=== PATIENT | male | born 1940 | race Caucasian/White ===

== ENCOUNTER 2018-10-24 12:19 | Inpatient (IN) ==
[2018-10-24] MEDS ORDERED: DIPHTHERIA/TETANUS/PERTUSSIS 0.5 ML SYR/VIAL IM ONE ×2 (13:13→15:43)
--- NOTE | 2018-10-24 13:16 | Emergency Department Note ---
Entered by Mayela Walton acting as a scribe for Tramaine Hendricks DO History of Present Illness General Chief complaint: Head Injury, Minor Stated complaint: fall/ facial & R hand lac Time Seen by Provider: 10/24/18 13:06 Source: patient and family History of Present Illness Provider complaint: fall Onset (ago): hour(s) less than 1 Location: head Pain Consistency: + other (episode) Quality: + other (fall) Associated symptoms: + denies other symptoms (head pain, neck pain, abdominal pain, shoulder pain, leg pain) Treatments prior to arrival: other (Plavix) The patient is an 78 year old male who presents to the ED with complaints of an episode of a fall that occurred less than 1 hour ago. The patients states that [place]. The patient denies head pain, neck pain, abdominal pain, shoulder pain, and leg pain. Per , the patient is on Plavix and he did take his medication today. Home Medications Home Medications Medication Instructions Recorded Confirmed Type aspirin 81 mg PO QAM 10/24/18 10/24/18 History benazepril 5 mg PO QAM 10/24/18 10/24/18 History clopidogrel [Plavix] 75 mg PO QAM 10/24/18 10/24/18 History levothyroxine 50 mcg PO QAM 10/24/18 10/24/18 History metoprolol tartrate 25 mg PO BID 10/24/18 10/24/18 History potassium chloride 10 meq PO QAM 10/24/18 10/24/18 History simvastatin 40 mg PO QAM 10/24/18 10/24/18 History vismodegib [Erivedge] 150 mg PO QAM 10/24/18 10/24/18 History Allergies Allergy/AdvReac Type Severity Reaction Status Date / Time No Known Allergies Allergy Unverified 10/24/18 13:19 Past Med/Surg History Family History Other Family history non-contributory Social History Preferred Language: Bulgarian Communication Ability: Impaired Communication Ability Comment: some expressive aphasia from previous stroke Clinical Operations Manager Required: No Beliefs That Will Affect Care: None Current Living Situation: Spouse Other Information That Helps Us Care for You: No Feels Safe at Home: Yes Safety Concerns: Feels Safe At This Time Smoking Status: Never smoker Hx Alcohol Use: No Hx Substance Use: No Review of Systems See HPI for pertinent positives & negatives. and A total of 10 systems reviewed and were otherwise negative Physical Exam Vital Signs Vital Signs - 24 hr 10/24/18 14:43 10/24/18 15:09 10/24/18 16:00 Pulse Rate 71 86 Pulse Rate [Left Finger] 64 Pulse Rate from SpO2 Sensor 85 Pulse Rhythm Regular Respiratory Rate 18 18 23 Respiratory Effort / Characteristics Non-Labored Respiratory Depth Normal Respiratory Pattern Regular Blood Pressure 152/65 H Blood Pressure [Left Arm] 138/60 Blood Pressure Mean 94 Blood Pressure Mean [Left Arm] 86 Pulse Oximetry 99 99 99 Oxygen Delivery Method Room Air Room Air Room Air 10/24/18 16:30 10/24/18 18:30 10/24/18 19:01 Pulse Rate 85 109 H 104 H Pulse Rate [Left Finger] Pulse Rate from SpO2 Sensor 85 105 H 104 H Pulse Rhythm Respiratory Rate 20 28 H 22 Respiratory Effort / Characteristics Respiratory Depth Respiratory Pattern Blood Pressure 122/62 160/67 H 125/64 Blood Pressure [Left Arm] Blood Pressure Mean 82 98 84 Blood Pressure Mean [Left Arm] Pulse Oximetry 97 96 99 Oxygen Delivery Method Room Air Room Air 10/24/18 19:30 10/24/18 20:00 10/24/18 20:30 Pulse Rate 101 H 108 H 110 H Pulse Rate [Left Finger] Pulse Rate from SpO2 Sensor 102 H 109 H 112 H Pulse Rhythm Respiratory Rate 23 23 25 H Respiratory Effort / Characteristics Respiratory Depth Respiratory Pattern Blood Pressure 138/61 155/70 H 120/63 Blood Pressure [Left Arm] Blood Pressure Mean 86 98 82 Blood Pressure Mean [Left Arm] Pulse Oximetry 99 99 98 Oxygen Delivery Method 10/24/18 21:00 Pulse Rate 128 H Pulse Rate [Left Finger] Pulse Rate from SpO2 Sensor 128 H Pulse Rhythm Respiratory Rate 24 Respiratory Effort / Characteristics Respiratory Depth Respiratory Pattern Blood Pressure 154/86 H Blood Pressure [Left Arm] Blood Pressure Mean 108 Blood Pressure Mean [Left Arm] Pulse Oximetry 100 Oxygen Delivery Method GENERAL: Patient is awake and alert. He is very anxious appearing. EYES: Pupils are equal round and reactive to light. There is significant periorbital ecchymosis around the right eye. There is no proptosis. EARS, NOSE, MOUTH AND THROAT: There is significant facial trauma especially around the right side of the face. There is a large stellate laceration over the bridge of the nose. There is no active bleeding noted. There are also multiple linear lacerations over the mid part of the forehead. Clotted blood is noted in both nares but no septal hematoma was noted. Dentition is intact. There is blood in the oropharynx. NECK: The neck is nontender and supple. Range of motion was normal. RESPIRATORY: Normal respiratory effort is noted there is no evidence of wheezing rhonchi or rales CARDIOVASCULAR: Regular rate and rhythm noted there no murmurs rubs or gallops normal S1 normal S2 GASTROINTESTINAL: The abdomen is soft. Bowel sounds are present in all quadrants. Abdomen is nontender BACK: No midline tenderness or or step-off noted range of motion in flexion extension as well as rotation no signs of muscle spasm noted MUSCULOSKELETAL/EXTREMITIES: There is significant ecchymosis and swelling over the right upper extremity as well as the right forearm. This area is difficult to evaluate due to the patient's previous stroke. There is no palpable tenderness over the hips. SKIN: There is no obvious evidence of any rash. Pedal edema was noted bilaterally. There is ecchymosis and skin tearing over the dorsum of the left hand. There is also skin tearing on the right upper extremity as well as ec chymosis and swelling over the right upper extremity. NEUROLOGIC: Patient is awake and oriented to person place and situation. There is right-sided weakness consistent with the patient's previous stroke. Course 1307: Past medical records reviewed. The patient was evaluated in room B7. A complete history and physical exam was performed. 1811: Dr. Morales- Oral and Maxillofacial Surgeon did facial laceration repairs on the patient. Patient will need to have ongoing care for dressing changes either here or at [facility]. 1831: I discussed the patient's case with [facility] She will be accepting the patient for [facility] He will evaluate the patient for further management. Consultations Consultation #1: I discussed the patient's case with Nayeli Lujan [facility]. She will be accepting the patient for [facility] He will evaluate the patient for further management. Time: 18:31 Administered Medications Aspirin (Ecotrin Ectab) 81 mg PO QAM [facility] Stop: 11/24/18 08:59 Last Admin: 10/25/18 07:57 Dose: 81 mg Documented by: [id number] Clopidogrel Bisulfate (Plavix) 75 mg PO [facility] Stop: 11/24/18 08:59 Last Admin: 10/25/18 07:59 Dose: 75 mg Documented by: [id number] Enalapril Maleate (Vasotec) 5 mg PO [facility] Stop: 11/24/18 08:59 Last Admin: 10/25/18 08:00 Dose: 5 mg Documented by: [id number] Ceftriaxone Sodium 2,000 mg/ (Dextrose) 70 mls @ 140 mls/hr IV Q24H [facility] Stop: 12/06/18 00:00 Last Infusion: 10/25/18 01:47 Dose: 0 mls/hr Documented by: [id number] Admin: 10/25/18 01:08 Dose: 140 mls/hr Documented by: [id number] Levothyroxine [facility] ([facility]th[facility]) [facility] Stop: 11/24/18 06:29 Last Admin: 10/25/18 05:27 Dose: 50 mcg Documented by: [id number] Metoprolol Tartrate (Lopressor) 25 mg PO BID [facility] Stop: 11/24/18 08:59 Last Admin: 10/25/18 07:59 Dose: 25 mg Documented by: [id number] Miscellaneous (Order Awaiting Action) 1 ea N/A QS [facility] Stop: 11/24/18 00:29 Last Admin: 10/25/18 09:54 Dose: Not Given Documented by: [id number] Admin: 10/25/18 01:36 Dose: Not Given Documented by: [id number] Potassium Chloride (Klor-Con M10) 10 meq PO [facility] Stop: 11/24/18 08:59 Last Admin: 10/25/18 07:58 Dose: 10 meq Documented by: [id number] Simvastatin (Zocor) 40 mg PO [facility] Stop: 11/24/18 08:59 Last Admin: 10/25/18 08:00 Dose: 40 mg Documented by: [id number] Discontinued Medications Diphtheria/Pertussis/Tetanus Vacc (Adacel) 0.5 ml IM .ONCE ONE Stop: 10/24/18 13:14 Last Admin: 10/24/18 15:47 Dose: 0.5 ml Documented by: [id number] Diphtheria/Pertussis/Tetanus Vacc (Adacel) Confirm Administered Dose 0.5 ml IM .STK-MED ONE Stop: 10/24/18 15:44 Last Admin: 10/24/18 18:33 Dose: Not Given Documented by: [id number] Cefazolin Sodium (Ancef 1000mg) 1,000 mg in 7.5 mls @ 2.5 mls/min IV NOW STA Stop: 10/24/18 15:07 Last Admin: 10/24/18 15:47 Dose: 2.5 mls/min Documented by: [id number] Sodium Chloride (Nss 1000ml) 500 mls @ 999 mls/hr IV .Q31M ONE Stop: 10/24/18 15:35 Last Infusion: 10/24/18 16:19 Dose: 0 mls/hr Documented by: [id number] Admin: 10/24/18 15:47 Dose: 999 mls/hr Documented by: [id number] Lidocaine/Epinephrine (Xylocaine/Epinephrine 1%) Confirm Administered Dose 20 ml .ROUTE .STThe Kitchen Hotline-MED ONE Stop: 10/24/18 17:43 Last Admin: 10/24/18 18:33 Dose: 20 ml Documented by: [id number] Medical Decision Making Differential Diagnosis Differential diagnosis: Etiologies such as fracture, cervical/vertebral injury, dislocation, intra- abdominal process, pneumothorax, intrathoracic trauma, intracranial injury, soft tissue injury, neurologic process, as well as other traumatic pathologies were entertained. Medical Records Attestation: I reviewed the patient's medical records. Home Medications Current Medication List: was personally reviewed by me Laboratory Data Attestation: I reviewed the patient's lab results. Result diagrams: 10/25/18 06:05 10/25/18 06:05 Lab Results 10/24/18 10/24/18 10/24/18 Range/Units 12:20 12:20 12:20 WBC 8.03 (4.8-10.8) K/uL RBC 3.55 L (4.7-6.1) M/uL Hgb 11.6 L (14.0-18.0) g/dL Hct 35.0 L (42-52) % MCV 98.6 (80-100) fL MCH 32.7 (25-34) pg MCHC 33.1 (32-36) g/dL RDW Std Deviation 50.8 H (36.4-46.3) fL RDW Coeff of Dago 14.1 (11.5-14.5) % Plt Count 180 (130-400) K/uL MPV 9.5 (7.4-10.4) fL Immature Gran % (Auto) 0.2 % Neut % (Auto) 64.4 % Lymph % (Auto) 24.0 % Weld % (Auto) 7.5 % Eos % (Auto) 3.4 % Baso % (Auto) 0.5 % Immature Gran # (Auto) 0.02 (0.00-0.02) K/uL Neut # (Auto) 5.17 (1.4-6.5) K/uL Lymph # (Auto) 1.93 (1.2-3.4) K/uL Weld # (Auto) 0.60 H (0.11-0.59) K/uL Eos # (Auto) 0.27 (0-0.5) K/uL Baso # (Auto) 0.04 (0-0.2) K/uL PT 11.0 (9.0-12.0) Seconds INR 1.1 (0.9-1.1) APTT 23.4 (21.0-31.0) Seconds PTT Ratio 0.9 Sodium 142 (136-145) mmol/L Potassium 4.5 (3.5-5.1) mmol/L Chloride 110 H (98-107) mmol/L Carbon Dioxide 25 (21-32) mmol/L Anion Gap 7.0 (3-11) BUN 20 H (7-18) mg/dl Creatinine 1.08 (0.6-1.4) mg/dl Est Cr Clr Drug Dosing 60.9 ml/min Est GFR ( Amer) 74.7 Est GFR (Non-Af Amer) 64.5 BUN/Creatinine Ratio 18.1 (10-20) Glucose 110 H (70-99) mg/dl Calcium 9.9 (8.5-10.1) mg/dl Total Bilirubin 0.7 (0.2-1) mg/dl AST 13 L (15-37) U/L ALT 17 (12-78) U/L Alkaline Phosphatase 90 (45-117) U/L Total Protein 7.1 (6.4-8.2) gm/dl Albumin 3.2 L (3.4-5.0) gm/dl Globulin 3.9 (2.5-4.0) gm/dl Albumin/Globulin Ratio 0.8 L (0.9-2) Lipase 138 (73-393) U/L Imaging Data Radiologist's Impression: Radiology results as stated below per my review and the radiologist's interpretation: XR chest 1V portable CLINICAL HISTORY: fall trauma COMPARISON STUDY: No previous studies for comparison. FINDINGS: Prior median sternotomy. Diaphragms are smooth. The lungs are considered clear. IMPRESSION: No acute process. The above report was generated using voice recognition software. It may contain grammatical, syntax or spelling errors. Electronically signed by: Adonay Ann M.D. 10/24/2018 1:39 PM XR forearm RT 2V CLINICAL HISTORY: Trauma, R forearm pain COMPARISON: None. DISCUSSION: The bones and joint spaces appear intact. There is no evidence of fracture, dislocation or bony disease. Generalized degenerative change. Osteopenia process. IMPRESSION: Generalized degenerative changes. Osteoporosis. No acute process. The above report was generated using voice recognition software. It may contain grammatical, syntax or spelling errors. Electronically signed by: Adonay Ann M.D. 10/24/2018 5:21 PM XR pelvis 1-2V routine CLINICAL HISTORY: Elbow pain status post trauma COMPARISON: None. DISCUSSION: Study is rotated. There is a bipolar right hip arthroplasty. No acute fractures or dislocations are visualized. There is mild nonspecific right ischial sclerosis. There is no SI joint diastases. There is no symphysis diastases. IMPRESSION: No acute fractures or dislocations identified. Electronically signed by: Juan Carlos Keller M.D. 10/24/2018 1:39 PM XR humerus RT 2V CLINICAL HISTORY: R arm pain trauma. Pain. COMPARISON: None. DISCUSSION: The bones and joint spaces appear intact. There is no evidence of fracture, dislocation or bony disease. There is no evidence for soft tissue swelling. IMPRESSION: Negative study. The above report was generated using voice recognition software. It may contain grammatical, syntax or spelling errors. Electronically signed by: Adonay Ann M.D. 10/24/2018 5:21 PM XR ankle RT 2V CLINICAL HISTORY: r ankle pain pain COMPARISON: None. DISCUSSION: Generalized degenerative change. Osteoporosis. Heel spur. No well-defined acute bony abnormality. Soft tissue vascular calcification. Subtalar joint is intact. IMPRESSION: 1. Generalized degenerative change. 2. Osteoporosis. 3. Heel spur. 4. No acute bony abnormality. The above report was generated using voice recognition software. It may contain grammatical, syntax or spelling errors. Electronically signed by: Adonay Ann M.D. 10/24/2018 5:[address] head/brain wo con CLINICAL HISTORY: Head pain status post trauma COMPARISON STUDY: No previous studies for comparison. TECHNIQUE: Axial CT of the brain is performed from the vertex to the skull bas e. IV contrast was not administered for this examination. A dose lowering technique was utilized adhering to the principles of ALARA. CT DOSE: FINDINGS: No intra or extra-axial mass lesions are visualized. There is no CT evidence of acute cortical infarction. There is no evidence of midline shift. There is no acute hemorrhage. No calvarial fractures are visualized. There are patchy white matter hypodensities likely on a small vessel basis. There is an old left hemispheric infarct with involvement of the left frontal lobe, left basal ganglia, and anterior portion of the left parietal lobe. There is no evidence of pathologic ventricular dilatation. There is no evidence of acute sinusitis. There is evidence for a frontal soft tissue injury. Overlying radiopaque material likely represent suture. There is soft tissue air within the right temporal region. This is likely secondary to an overlying soft tissue laceration. IMPRESSION: 1. Scalp laceration 2. Old left hemispheric infarct. 3. No acute intracranial findings Electronically signed by: Juan Carlos Keller M.D. 10/24/2018 1:[address] SCAN OF THE FACIAL BONES WITHOUT IV CONTRAST CLINICAL HISTORY: Fall. Facial laceration. COMPARISON STUDY: CT of the brain performed concurrently on 10/24/2018. TECHNIQUE: High-resolution CT scan of the facial bones is performed. Images are reviewed in the axial, sagittal, and coronal planes. IV contrast was not administered for this examination. A dose lowering technique was utilized adhering to the principles of ALARA. CT DOSE: 1049.26 mGy.cm FINDINGS: The skeletal structures are osteopenic. There are fractures of the tips of the nasal bones, with minimal depression on the left. Overlying soft tissue edema is noted. No additional facial bone fracture is seen. The bony orbits are intact and the orbital contents are within normal limits noting bilateral ocular lens implants. The zygomatic arches and pterygoid plates are preserved. The maxilla and mandible are intact. There are no layering blood products within the paranasal sinuses. There is trace mucosal thickening within the right maxillary antrum and the ethmoid sinuses. The remaining paranasal sinuses are clear. The mastoid air cells are well pneumatized. The visualized ca lvarium and upper cervical spine are maintained. Left hemisphere encephalomalacia is consistent with a remote infarct. A left carotid artery stent is noted in the neck. There is right premalar, right periorbital, right temporal, and frontal scalp contusion. IMPRESSION: 1. There are fractures at the tips of the nasal bones with minimal depression on the left. 2. No additional facial bone fracture is seen. 3. Right-sided facial soft tissue contusions as above. Electronically signed by: Ronaldo Ortiz M.D. 10/24/2018 2:[address] OF THE CERVICAL SPINE CLINICAL HISTORY: Neck pain status post trauma COMPARISON STUDY: No previous studies for comparison. CT DOSE: TECHNIQUE: CT scan of the cervical spine was performed from the skull base to the thoracic inlet. Images are reviewed in the axial, sagittal, and coronal planes. IV contrast was not administered for this examination. A dose lowering technique was utilized adhering to the principles of ALARA. FINDINGS: There is a 6 cm right lobe thyroid nodule. Ultrasound follow-up is recommended. There is a 1 cm sclerotic lesion within the C6 vertebral body. In the absence of a primary malignancy this likely represents a bone island. The prevertebral soft tissues are normal. No fractures or subluxations are visualized. There is incomplete posterior C1 arch. This is felt to be developm ental. There are multilevel degenerative changes. There is multilevel spinal canal narrowing and multilevel foraminal narrowing. IMPRESSION: 1. No acute fractures or subluxations 2. 6 cm right lobe thyroid nodule. Ultrasound follow-up is recommended Electronically signed by: Juan Carlos Keller M.D. 10/24/2018 2:03 PM Blood Pressure Blood Pressure Findings: Normal blood pressure Blood Pressure Disposition: did not require urgent referral MDM Narrative The patient is an 78-year-old male who presented to the emergency department for an evaluation after a fall. The patient suffered a fall with very significant facial injury. He also had right upper extremity injury. The patient has a history of a stroke and normally ambulates with a wheelchair. He fell from the wheelchair striking his face. The patient had wound irrigation as well as laboratory and radiographic studies in the emergency department. It appears that his facial laceration involves an area of recent skin biopsy for basal cell cancer. For this reason Dr. Morales was consulted. He presented to the emergency department and evaluated the patient. Multiple lacerations were repaired by him. The patient received IV antibiotics. He felt that the defect over the bridge of the nose was very difficult to fix and at this time he feels the patient should follow-up with his primary scanner supervisor for possible further wound care as well as skin grafting. For this reason I discussed his case with the on-call [facility] hospitalist. They have agreed to evaluate the patient in the emergency department for further management disposition. Impression & Plan Fall, Head injury, Facial laceration, Contusion of arm, right Discharge Plan Visit Data *Final* Discharge Date/Time: 10/24/18 21:46 Chief Complaint: Head Injury, Minor Stated Complaint: fall/ facial & R hand lac ED Provider: Tramaine Hendricks Discharge Problem: Fall, Head injury, Facial laceration, Contusion of arm, right Patient Disposition: Admitted As Inpatient Discharge Instructions Interventions: ED Discharge Assessment Last Done: 10/24/18 21:46 Discharge Problem: Fall Qualifiers: Encounter type: initial encounter Qualified Code(s): W19.XXXA - Unspecified fall, initial encounter Head injury Qualifiers: Encounter type: initial encounter Qualified Code(s): S09.90XA - Unspecified injury of head, initial encounter Facial laceration Qualifiers: Encounter type: initial encounter Qualified Code(s): S01.81XA - Laceration without foreign body of other part of head, initial encounter Contusion of arm, right Qualifiers: Encounter type: initial encounter Qualified Code(s): S40.021A - Contusion of right upper arm, initial encounter The scribe's documentation has been prepared under my direction and personally reviewed by me in its entirety. I confirm that the note above accurately reflects all work, treatment, procedures, and medical decision making performed by me.
--- NOTE | 2018-10-24 13:41 | XRay Report ---
XR pelvis 1-2V routine CLINICAL HISTORY: Elbow pain status post trauma COMPARISON: None. DISCUSSION: Study is rotated. There is a bipolar right hip arthroplasty. No acute fractures or disloc ations are visualized. There is mild nonspecific right ischial sclerosis. There is no SI joint diasta ses. There is no symphysis diastases. IMPRESSION: No acute fractures or dislocations identified. Electronically signed by: Juan Carlos Keller M.D. 10/24/2018 1:39 PM
--- NOTE | 2018-10-24 13:41 | XRay Report ---
XR chest 1V portable CLINICAL HISTORY: fall trauma COMPARISON STUDY: No previous studies for comparison. FINDINGS: Prior median sternotomy. Diaphragms are smooth. The lungs are considered clear. IMPRESSION: No acute process. The above report was generated using voice recognition software. It may contain grammatical, syntax or spelling errors. Electronically signed by: Adonay Ann M.D. 10/24/2018 1:39 PM
--- NOTE | 2018-10-24 13:58 | CT Scan Report ---
CT head/brain wo con CLINICAL HISTORY: Head pain status post trauma COMPARISON STUDY: No previous studies for comparison. TECHNIQUE: Axial CT of the brain is performed from the vertex to the skull base. IV contrast was not administered for this examination. A dose lowering technique was utilized adhering to the principles of ALARA. CT DOSE: FINDINGS: No intra or extra-axial mass lesions are visualized. There is no CT evidence of acute cortical infarc tion. There is no evidence of midline shift. There is no acute hemorrhage. No calvarial fractures ar e visualized. There are patchy white matter hypodensities likely on a small vessel basis. There is an old left jamarcus spheric infarct with involvement of the left frontal lobe, left basal ganglia, and anterior portion o f the left parietal lobe. There is no evidence of pathologic ventricular dilatation. There is no evidence of acute sinusitis. There is evidence for a frontal soft tissue injury. Overlyin g radiopaque material likely represent suture. There is soft tissue air within the right temporal reg ion. This is likely secondary to an overlying soft tissue laceration. IMPRESSION: 1. Scalp laceration 2. Old left hemispheric infarct. 3. No acute intracranial findings Electronically signed by: Juan Carlos Keller M.D. 10/24/2018 1:57 PM
--- NOTE | 2018-10-24 14:05 | CT Scan Report ---
CT OF THE CERVICAL SPINE CLINICAL HISTORY: Neck pain status post trauma COMPARISON STUDY: No previous studies for comparison. CT DOSE: TECHNIQUE: CT scan of the cervical spine was performed from the skull base to the thoracic inlet. Radha ges are reviewed in the axial, sagittal, and coronal planes. IV contrast was not administered for thi s examination. A dose lowering technique was utilized adhering to the principles of ALARA. FINDINGS: There is a 6 cm right lobe thyroid nodule. Ultrasound follow-up is recommended. There is a 1 cm scler otic lesion within the C6 vertebral body. In the absence of a primary malignancy this likely represen ts a bone island. The prevertebral soft tissues are normal. No fractures or subluxations are visualized. There is inco mplete posterior C1 arch. This is felt to be developmental. There are multilevel degenerative changes. There is multilevel spinal canal narrowing and multilevel foraminal narrowing. IMPRESSION: 1. No acute fractures or subluxations 2. 6 cm right lobe thyroid nodule. Ultrasound follow-up is recommended Electronically signed by: Juan Carlos Keller M.D. 10/24/2018 2:03 PM
--- NOTE | 2018-10-24 14:15 | CT Scan Report ---
CT SCAN OF THE FACIAL BONES WITHOUT IV CONTRAST CLINICAL HISTORY: Fall. Facial laceration. COMPARISON STUDY: CT of the brain performed concurrently on 10/24/2018. TECHNIQUE: High-resolution CT scan of the facial bones is performed. Images are reviewed in the axia l, sagittal, and coronal planes. IV contrast was not administered for this examination. A dose lower ing technique was utilized adhering to the principles of ALARA. CT DOSE: 1049.26 mGy.cm FINDINGS: The skeletal structures are osteopenic. There are fractures of the tips of the nasal bones, with minimal depression on the left. Overlying soft tissue edema is noted. No additional facial bone fracture is seen. The bony orbits are intact and the orbital contents are within normal limits notin g bilateral ocular lens implants. The zygomatic arches and pterygoid plates are preserved. The maxill a and mandible are intact. There are no layering blood products within the paranasal sinuses. There i s trace mucosal thickening within the right maxillary antrum and the ethmoid sinuses. The remaining p aranasal sinuses are clear. The mastoid air cells are well pneumatized. The visualized calvarium and upper cervical spine are maintained. Left hemisphere encephalomalacia is consistent with a remote inf arct. A left carotid artery stent is noted in the neck. There is right premalar, right periorbital, r ight temporal, and frontal scalp contusion. IMPRESSION: 1. There are fractures at the tips of the nasal bones with minimal depression on the left. 2. No additional facial bone fracture is seen. 3. Right-sided facial soft tissue contusions as above. Electronically signed by: Ronaldo Ortiz M.D. 10/24/2018 2:13 PM
[2018-10-24] MEDS ORDERED: CEFAZOLIN 1000MG 1,000 MG/7.5 ML SYR IV STA (15:05)
[2018-10-24] MEDS ORDERED: SODIUM CHLORIDE 0.9% 1000ML 500 ML IV ONE (15:05)
[2018-10-24 15:57] LABS: Basophils # (auto) 0.04 K/uL (0-0.2); Basophils % (auto) 0.5 %; Eosinophils # (auto) 0.27 K/uL (0-0.5); Eosinophils % (auto) 3.4 %; Hemoglobin 11.6 g/dL (14.0-18.0); Immature Granulocytes # (auto) 0.02 K/uL (0.00-0.02); Immature Granulocytes % (auto) 0.2 %; Lymphocytes # (auto) 1.93 K/uL (1.2-3.4); Mean Corpuscular Hgb Conc 33.1 g/dL (32-36); Mean Corpuscular Volume 98.6 fL (80-100); Mean Platelet Volume 9.5 fL (7.4-10.4); Monocytes % (auto) 7.5 %; Neutrophils # (auto) 5.17 K/uL (1.4-6.5); Neutrophils % (auto) 64.4 %; Platelet Count 180 K/uL (130-400); RDW Coefficient of Variation 14.1 % (11.5-14.5); RDW Standard Deviation 50.8 fL (36.4-46.3); Red Blood Count 3.55 M/uL (4.7-6.1); White Blood Count 8.03 K/uL (4.8-10.8)
[2018-10-24 16:00] LABS: INR 1.1 (0.9-1.1); Partial Thromboplastin Ratio 0.9; Partial Thromboplastin Time 23.4 Seconds (21.0-31.0)
[2018-10-24 16:06] LABS: Albumin Level 3.2 gm/dl (3.4-5.0); BUN Creatinine Ratio 18.1 (10-20); Calcium 9.9 mg/dl (8.5-10.1); Creatinine Clr Calc Pharmacy 60.9 ml/min; Est GFR (African American) 74.7; Est GFR (Non-African American) 64.5; Potassium 4.5 mmol/L (3.5-5.1)
[2018-10-24 16:08] LABS: Albumin Globulin Ratio 0.8 (0.9-2); Bilirubin,Total 0.7 mg/dl (0.2-1); Globulin 3.9 gm/dl (2.5-4.0); Total Protein 7.1 gm/dl (6.4-8.2)
--- NOTE | 2018-10-24 17:21 | XRay Report ---
XR ankle RT 2V CLINICAL HISTORY: r ankle pain pain COMPARISON: None. DISCUSSION: Generalized degenerative change. Osteoporosis. Heel spur. No well-defined acute bony abnormality. Soft tissue vascular calcification. Subtalar joint is intact. IMPRESSION: 1. Generalized degenerative change. 2. Osteoporosis. 3. Heel spur. 4. No acute bony abnormality. The above report was generated using voice recognition software. It may contain grammatical, syntax or spelling errors. Electronically signed by: Adonay Ann M.D. 10/24/2018 5:19 PM
--- NOTE | 2018-10-24 17:22 | XRay Report ---
XR forearm RT 2V CLINICAL HISTORY: Trauma, R forearm pain COMPARISON: None. DISCUSSION: The bones and joint spaces appear intact. There is no evidence of fracture, dislocation o r bony disease. Generalized degenerative change. Osteopenia process. IMPRESSION: Generalized degenerative changes. Osteoporosis. No acute process. The above report was generated using voice recognition software. It may contain grammatical, syntax or spelling errors. Electronically signed by: Adonay Ann M.D. 10/24/2018 5:21 PM
--- NOTE | 2018-10-24 17:23 | XRay Report ---
XR humerus RT 2V CLINICAL HISTORY: R arm pain trauma. Pain. COMPARISON: None. DISCUSSION: The bones and joint spaces appear intact. There is no evidence of fracture, dislocation o r bony disease. There is no evidence for soft tissue swelling. IMPRESSION: Negative study. The above report was generated using voice recognition software. It may contain grammatical, syntax or spelling errors. Electronically signed by: Adonay Ann M.D. 10/24/2018 5:21 PM
[2018-10-24] MEDS ORDERED: LIDOCAINE/EPINEPHRINE 1% 20 ML VIAL ONE (17:42)
--- NOTE | 2018-10-24 20:34 | Consultation Report ---
DATE OF CONSULTATION: 10/24/2018 CHIEF COMPLAINT: Fall with complex facial lacerations. SUMMARY HISTORY: Please refer to the ER documentation. In brief, Mr. Bentley is an 78-year-old medically compromised man visiting the [facility] area to attend the [employer], but lives in [place]. He fell at the fair suffering a significant laceration of his forehead and cheek and was brought to the ER. 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 There is also significant abrasions in the right cheek with some retained gravel. The patient and family's verbal consent, I cleansed the wound, removed the gravel from the cheek, irrigated the areas copiously and I used lidocaine with epinephrine to locally anesthetize the 3 cm forehead laceration. I debrided the laceration, trimmed irregular and necrotic edges of the skin and closed the laceration with 4-0 chromic gut suture in a single layer. I applied bacitracin to this and then cleansed the facial abrasions and placed bacitracin on the nose. I discussed his care with the ER staff, will place him on oral antibiotic. I feel that saline wet to dry dressings done twice daily will be necessary to manage the wound at the root of his nose, will try to arrange for either visiting home health or perhaps a short rehab stay for their time here in [facility] and transfer records to his care team in [place] to flower buncher or picker his care, which will need to involve close monitoring and wound care of both the lacerations and the tumor. I communicated this with his and son and they can certainly call me for any advice as needed going forward.
--- NOTE | 2018-10-24 21:20 | History & Physical Report ---
Date of Service October 24, 2018 Assessment & Plan (1) Open nasal fracture: 78-year-old male was admitted on 24 October 2018 following a fall and now an open nasal fracture. Open nasal fracture s/p fall: History of basal cell carcinoma with radiation and now medically treated with Erivedge (care at home in [place]). Fell face forward out of wheelchair prior to arrival. Now has exposed facial bones. - In ED, afebrile, briefly tachycardic and tachypneic, moderately hypertensive, with normal room SpO2. WBC 8. INR 1.1. CMP relatively normal. Multiple CT and x-rays performed, see full reports. Remarkable for fracture of the tip of the nasal bones as well as facial contusions. - In ED, was treated with normal saline, Ancef, and given a Tdap booster. [place] and underwent suture repair of his cheek. - Will keep on ceftriaxone. Monitor for fever, local cellulitis, or other evidence of worsening overnight. Placed formal consult [place] [facility] They recommended saline wet-to-dry dressings twice a day to manage the wound at the nose. Anemia: Admit hemoglobin 11.6. Has multiple abrasions s/p fall and has been on aspirin and Plavix. - Will recheck hemoglobin in the morning. Thyroid nodule: 6 cm right lobe thyroid nodule seen on admit CT C-spine. Report jessie had a thyroidectomy around 1993 mass at that time. Is on levothyroxine. - Would benefit from further outpatient work-up. Continue home levothyroxine. Ongoing medical issues: - Likely hypertension and hyperlipidemia: Per family. Continue home metoprolol, benazepril, simvastatin, and potassium. - CAD, history of CABG. Reportedly three-vessel bypass around 1997. Continue home aspirin and Plavix for now. - History of CVA: Around 2006. This admit, CT head notes old left hemispheric infarct. At baseline, no movement of the right upper extremity and some weakness/spasticity of the right lower extremity. - Osteoporosis: Seen on admit x-rays. - Likely dementia: Some issues with orientation on admit. Code status: Full code. Diet: Heart healthy, soft bite sized. DVT prophy: SCDs for now given his multiple abrasions and contusions. Is already on aspirin and Plavix. PT/OT: Ordered. Disbo: Admit to [facility] with telemetry. Placed consult to case management for early evaluation. (2) Fall: (3) Basal cell carcinoma (BCC): (4) Anemia: (5) Thyroid nodule: (6) Hypertension: (7) Hyperlipidemia: (8) CAD (coronary artery disease): (9) History of coronary artery bypass graft x 3: (10) History of CVA with residual deficit: (11) Osteoporosis: History of Present Illness Primary Care Provider: ANA DEE 78-year-old male is accompanied by his family after suffering a fall just prior to arrival. Patient is visiting from [place]. He was attending the [employer] when his family was wheeling him in his wheelchair through the parking lot. While wheeling him down that grassy hill the wheelchair struck a rock, immediately causing the patient to be projected forwards and took the brunt of the fall on his face. He also suffered multiple abrasions over his right upper extremity. Denied any loss of consciousness or present headache/vomiting. At the time of this H&P, patient denied any focal pains. However, his and his family's primary concern is related to his nose. Patient has been undergoing therapy for basal cell carcinoma on his nose. Has undergone multiple rounds of radiation but apparently is not a full surgical candidate. Has been started on medical management. As a result of this fall, he lost extra tissue over his previous radiation wound tissue leading to exposed bone and bleeding. No other immediate patient or family concerns. - Past medical history includes likely hypertension and hyperlipidemia, coronary disease, CVA around 2006, osteoporosis, likely dementia, basal cell carcinoma around the face. - Past surgical history includes CABG (likely three-vessel) around 1997, thyroidectomy around 1989. - Social history includes living in [place]. Visiting family locally. Allergies Allergy/AdvReac Type Severity Reaction Status Date / Time No Known Allergies Allergy Unverified 10/24/18 13:19 Home Medications Home Medications Medication Instructions Recorded Confirmed Type aspirin 81 mg PO QAM 10/24/18 10/24/18 History benazepril 5 mg PO QAM 10/24/18 10/24/18 History clopidogrel [Plavix] 75 mg PO QAM 10/24/18 10/24/18 History levothyroxine 50 mcg PO QAM 10/24/18 10/24/18 History metoprolol tartrate 25 mg PO BID 10/24/18 10/24/18 History potassium chloride 10 meq PO QAM 10/24/18 10/24/18 History simvastatin 40 mg PO QAM 10/24/18 10/24/18 History vismodegib [Erivedge] 150 mg PO QAM 10/24/18 10/24/18 History Past Med/Surg History Family History Other Family history non-contributory Social History Preferred Language: Yoruba Communication Ability: Impaired Communication Ability Comment: some expressive aphasia from previous stroke Pin Drafting Machine Tender Required: No Beliefs That Will Affect Care: None marital status: Current Living Situation: Spouse Other Information That Helps Us Care for You: No Feels Safe at Home: Yes Safety Concerns: Feels Safe At This Time Smoking Status: Never smoker Hx Alcohol Use: No Hx Substance Use: No Review of Systems Review of Systems: ROS is limited due to the patient's likely baseline dementia. However, he does deny any present chest pain, shortness of breath, abdominal pain, or focal extremity pains. Physical Exam Physical Exam: GENERAL: Awake, alert, knows his name and that he is in [place]. Does not know the city, location, or the date. HENT: There are multiple bandages over the nose and right side of the face. Multiple areas of the face, primarily on the right side, appear consistent with radiation funez. EYES: There is some slight drainage from the right conjunctiva. Otherwise the conjunctive themselves appear clear. NECK: Inspection normal. Supple and full ROM. No nuchal rigidity. CARDIAC: +S1S2 RRR, no murmurs. Well-healed midline sternotomy scar. RESPIRATORY: Clear to auscultation. No wheezes or rales. Normal respiratory effort. GI: +BS, soft, non-distended. No tenderness to palpation. No rebound or guarding. EXTREMITIES / SKIN: - No movement of the right upper extremity. There are 3 different areas of abrasions that are currently wrapped with Kerlix. Amongst this her various areas of contusion. - The right lower extremity has 4+/5 strength with some spasticity. - Spontaneously and easily moves his left upper and left lower extremity. More chronic appearing contusions of the dorsal left hand. - Subacute appearing contusion present on the left posterior scapular region. BACK: No midline cervical, thoracic, lumbar, or sacral tenderness or step-offs. Results & Data Vital Signs (Past 12 Hours) Vital Signs Temp Pulse Pulse Resp BP BP Pulse Ox 10/24/18 20:00 108 H 23 155/70 H 99 10/24/18 19:30 101 H 23 138/61 99 10/24/18 19:01 104 H 22 125/64 99 10/24/18 18:30 109 H 28 H 160/67 H 96 10/24/18 16:30 85 20 122/62 97 10/24/18 16:00 86 23 152/65 H 99 10/24/18 15:09 71 18 99 10/24/18 14:43 64 18 138/60 99 10/24/18 12:19 36.6 C 71 20 126/67 96 Laboratory Results 10/24/18 10/24/18 10/24/18 Range/Units 12:20 12:20 12:20 WBC 8.03 (4.8-10.8) K/uL RBC 3.55 L (4.7-6.1) M/uL Hgb 11.6 L (14.0-18.0) g/dL Hct 35.0 L (42-52) % MCV 98.6 (80-100) fL MCH 32.7 (25-34) pg MCHC 33.1 (32-36) g/dL RDW Std Deviation 50.8 H (36.4-46.3) fL RDW Coeff of Dago 14.1 (11.5-14.5) % Plt Count 180 (130-400) K/uL MPV 9.5 (7.4-10.4) fL Immature Gran % (Auto) 0.2 % Neut % (Auto) 64.4 % Lymph % (Auto) 24.0 % [place] % (Auto) 7.5 % Eos % (Auto) 3.4 % Baso % (Auto) 0.5 % Immature Gran # (Auto) 0.02 (0.00-0.02) K/uL Neut # (Auto) 5.17 (1.4-6.5) K/uL Lymph # (Auto) 1.93 (1.2-3.4) K/uL [place] # (Auto) 0.60 H (0.11-0.59) K/uL Eos # (Auto) 0.27 (0-0.5) K/uL Baso # (Auto) 0.04 (0-0.2) K/uL PT 11.0 (9.0-12.0) Seconds INR 1.1 (0.9-1.1) APTT 23.4 (21.0-31.0) Seconds PTT Ratio 0.9 Sodium 142 (136-145) mmol/L Potassium 4.5 (3.5-5.1) mmol/L Chloride 110 H (98-107) mmol/L Carbon Dioxide 25 (21-32) mmol/L Anion Gap 7.0 (3-11) BUN 20 H (7-18) mg/dl Creatinine 1.08 (0.6-1.4) mg/dl Est Cr Clr Drug Dosing 60.9 ml/min Est GFR ( Amer) 74.7 Est GFR (Non-Af Amer) 64.5 BUN/Creatinine Ratio 18.1 (10-20) Glucose 110 H (70-99) mg/dl Calcium 9.9 (8.5-10.1) mg/dl Total Bilirubin 0.7 (0.2-1) mg/dl AST 13 L (15-37) U/L ALT 17 (12-78) U/L Alkaline Phosphatase 90 (45-117) U/L Total Protein 7.1 (6.4-8.2) gm/dl Albumin 3.2 L (3.4-5.0) gm/dl Globulin 3.9 (2.5-4.0) gm/dl Albumin/Globulin Ratio 0.8 L (0.9-2) Lipase 138 (73-393) U/L Medications Administered Discontinued Medications Diphtheria/Pertussis/Tetanus Vacc (Adacel) 0.5 ml IM .ONCE ONE Stop: 10/24/18 13:14 Last Admin: 10/24/18 15:47 Dose: 0.5 ml Documented by: [id number] Diphtheria/Pertussis/Tetanus Vacc (Adacel) Confirm Administered Dose 0.5 ml IM .STK-MED ONE Stop: 10/24/18 15:44 Last Admin: 10/24/18 18:33 Dose: Not Given Documented by: [id number] Cefazolin Sodium (Ancef 1000mg) 1,000 mg in 7.5 mls @ 2.5 mls/min IV NOW STA Stop: 10/24/18 15:07 Last Admin: 10/24/18 15:47 Dose: 2.5 mls/min Documented by: [id number] Sodium Chloride (Nss 1000ml) 500 mls @ 999 mls/hr IV .Q31M ONE Stop: 10/24/18 15:35 Last Infusion: 10/24/18 16:19 Dose: 0 mls/hr Documented by: [id number] Admin: 10/24/18 15:47 Dose: 999 mls/hr Documented by: [id number] Lidocaine/Epinephrine (Xylocaine/Epinephrine 1%) Confirm Administered Dose 20 ml .ROUTE .STK-MED ONE Stop: 10/24/18 17:43 Last Admin: 10/24/18 18:33 Dose: 20 ml Documented by: [id number] Code Status & VTE Plan Code Status Full code VTE Prophylaxis Plan VTE Prophylaxis will be ordered: Yes Supervising Physician Co-Signing Physician Notes Attending addendum: I have physically seen this patient, have supervised the medical residents activities, and agree with the H&P unless as otherwise noted. Assessment and Plan: Open nasal fracture status post mechanical fall/history of basal cell carcinoma with radiation- Seen by Dr. Morales in the ED, maxillofacial surgery, who sutured the wounds. Admit for IV antibiotics. Consult wound care Consult physical therapy. 6 cm thyroid nodule- Noted on CT of C-spine. Reported history of thyroidectomy. Check a TSH, free T4 and free T3. Further work-up as outpatient. Remainder of orders and notations as noted. PG Care Time/CCT Total # of Minutes Spent Total Time Spent with Patient: Total time spent is greater than 50% in coordination of care (as documented) at patient's floor/unit and/or counseling patient: Resident Activity Tracking Resident Involvement: Resident Care Provided Care Provided: Adult Hospital Medicine (1) Fall Encounter type: initial encounter Qualified Code(s): W19.XXXA - Unspecified fall, initial encounter
[2018-10-24] MEDS ORDERED: MoRPHine SULFATE 2 MG/ML CARP IV PRN (22:38)
[2018-10-24] MEDS ORDERED: ACETAMINOPHEN 325 MG TAB PO PRN (22:38)
[2018-10-24] MEDS ORDERED: cefTRIAXone SODIUM 1,000 MG in DEXTROSE 5% 50 ML IV SCH (22:38)
[2018-10-25] MEDS: cefTRIAXone SODIUM 2,000 MG in DEXTROSE 5% 50 ML IV SCH (01:08)
[2018-10-25] MEDS: LEVOTHYROXINE SODIUM 50 MCG TABLET PO SCH (05:27)
[2018-10-25 06:23] LABS: Basophils # (auto) 0.04 K/uL (0-0.2); Basophils % (auto) 0.6 %; Eosinophils # (auto) 0.09 K/uL (0-0.5); Eosinophils % (auto) 1.3 %; Hematocrit (blood only) 28.3 % (42-52); Hemoglobin 9.6 g/dL (14.0-18.0); Immature Granulocytes # (auto) 0.02 K/uL (0.00-0.02); Immature Granulocytes % (auto) 0.3 %; Lymphocytes # (auto) 1.16 K/uL (1.2-3.4); Lymphocytes % (auto) 16.3 %; Mean Corpuscular Hgb Conc 33.9 g/dL (32-36); Mean Corpuscular Volume 97.6 fL (80-100); Mean Platelet Volume 8.8 fL (7.4-10.4); Monocytes # (auto) 0.81 K/uL (0.11-0.59); Monocytes % (auto) 11.4 %; Neutrophils # (auto) 4.99 K/uL (1.4-6.5); Neutrophils % (auto) 70.1 %; Platelet Count 114 K/uL (130-400); RDW Standard Deviation 49.7 fL (36.4-46.3); White Blood Count 7.11 K/uL (4.8-10.8)
[2018-10-25 06:56] LABS: BUN Creatinine Ratio 18.9 (10-20); Calcium 9.7 mg/dl (8.5-10.1); Creatinine Clr Calc Pharmacy 64.7 ml/min; Est GFR (African American) 85.1; Est GFR (Non-African American) 73.4; Potassium 4.2 mmol/L (3.5-5.1)
[2018-10-25] MEDS: ASPIRIN 81 MG ECTAB PO SCH (07:57)
[2018-10-25] MEDS: POTASSIUM CHLORIDE 10 MEQ TABCR PO SCH (07:58)
[2018-10-25] MEDS: METOPROLOL TARTRATE 25 MG TAB PO SCH ×2 (07:59→20:29)
[2018-10-25] MEDS: CLOPIDOGREL BISULFATE 75 MG TAB PO SCH (07:59)
[2018-10-25] MEDS: ENALAPRIL MALEATE 5 MG TAB PO SCH (08:00)
[2018-10-25] MEDS: SIMVASTATIN 40 MG TAB PO SCH (08:00)
--- NOTE | 2018-10-25 12:27 | Hospitalist Progress Note ---
Date of Service October 25, 2018 Assessment & Plan (1) Open nasal fracture: 78-year-old male was admitted on 24 October 2018 following a fall and now an open nasal fracture. Open nasal fracture s/p fall: History of basal cell carcinoma with radiation and now medically treated with Erivedge (care at home in [place]). Fell face forward out of wheelchair prior to arrival. Now has exposed facial bones. - In ED, afebrile, briefly tachycardic and tachypneic, moderately hypertensive, with normal room SpO2. WBC 8. INR 1.1. CMP relatively normal. Multiple CT and x-rays performed, see full reports. Remarkable for fracture of the tip of the nasal bones as well as facial contusions. - In ED, was treated with normal saline, Ancef, and given a Tdap booster. Seen by Dr. Morales ([facility] [place]) and underwent suture repair of his cheek. - Will keep on ceftriaxone. Monitor for fever, local cellulitis, or other evidence of worsening overnight. Placed formal consult to [facility]. They recommended saline wet-to-dry dressings twice a day to manage the wound at the nose. PT/OT (2) Fall: (3) Basal cell carcinoma (BCC): (4) Anemia: acute blood loss contributing Admit hemoglobin 11.6, 9.9 today. Has multiple abrasions s/p fall and has been on aspirin and Plavix. - will repeat hgb am. No obvious excessive bleeding though per nursing they have changed his nasal dressing twice today for bloody drainage. (5) Thyroid nodule: Thyroid nodule: 6 cm right lobe thyroid nodule seen on admit CT C-spine. Reportedly had a thyroidectomy around 1993 mass at that time. Is on levothyroxine. - Would benefit from further outpatient work-up. Continue home levothyroxine. (6) Hypertension: stable, continue enalapril, metoprolol, (7) Hyperlipidemia: continue statin (8) CAD (coronary artery disease): Reportedly three-vessel bypass around 1997. Continue home aspirin and Plavix for now. (9) History of coronary artery bypass graft x 3: (10) History of CVA with residual deficit: Around 2006. This admit, CT head notes old left hemispheric infarct. At baseline, no movement of the right upper extremity and some weakness/spasticity of the right lower extremity. (11) Osteoporosis: - Osteoporosis: Seen on admit x-rays. (12) DVT prophylaxis: DVT prophy: SCDs for now given his multiple abrasions and contusions. Is already on aspirin and Plavix. Dispo: will need to travel to [place] at discharge. CM to contact patient's pcp concerning setting up home health Subjective Mr. Bentley is aphasic at baseline but is able to answer yes and no questions and brief simple phrases. He denies pain anywhere, denies any trouble breathing. Per nursing, they have changed his facial dressing twice this morning but he has not been bleeding heavily. Review of Systems Review of Systems: All systems reviewed & are unremarkable except as noted in HPI & below Physical Exam Physical Exam: General: no distress Eyes: normal inspection, PERLL Respiratory: chest non tender, clear to auscultation, normal breath sounds, no respiratory distress, no accessory muscle use Cardiac: regular rate and rhythm, no rub or gallop, no murmur, no edema, no jvd GI/: active bowel sounds, no abd pain or tenderness, soft, non distended Extremities: baseline right hemiplegia normal range of motion, normal strength, non tender Neuro/Psych: alert, unable to assess orientation due to aphasia, flat affect Skin: normal color, dry Results & Data Vital Signs (Past 12 Hours) Vital Signs Temp Pulse Resp BP Pulse Ox 10/25/18 11:54 36.4 C L 73 18 124/65 96 10/25/18 07:28 36.3 C L 100 H 18 170/76 H 95 10/25/18 04:00 37.4 C 111 H 20 110/52 L 97 PG Care Time/CCT Total # of Minutes Spent Total Time Spent with Patient: Total time spent is greater than 50% in co ordination of care (as documented) at patient's floor/unit and/or counseling patient: (1) Fall Encounter type: initial encounter Qualified Code(s): W19.XXXA - Unspecified fall, initial encounter
[2018-10-25] MEDS: ERIVEDGE 150 MG PO SCH (13:08)
[2018-10-26] MEDS: cefTRIAXone SODIUM 2,000 MG in DEXTROSE 5% 50 ML IV SCH (00:17)
[2018-10-26] MEDS: LEVOTHYROXINE SODIUM 50 MCG TABLET PO SCH (05:53)
[2018-10-26] MEDS: POTASSIUM CHLORIDE 10 MEQ TABCR PO SCH (08:02)
[2018-10-26] MEDS: ERIVEDGE 150 MG PO SCH (08:02)
[2018-10-26] MEDS: CLOPIDOGREL BISULFATE 75 MG TAB PO SCH (08:02)
[2018-10-26] MEDS: ENALAPRIL MALEATE 5 MG TAB PO SCH (08:02)
[2018-10-26] MEDS: SIMVASTATIN 40 MG TAB PO SCH (08:02)
[2018-10-26] MEDS: ASPIRIN 81 MG ECTAB PO SCH (08:02)
[2018-10-26] MEDS: METOPROLOL TARTRATE 25 MG TAB PO SCH ×2 (08:02→20:25)
--- NOTE | 2018-10-26 14:08 | Hospitalist Progress Note ---
Date of Service October 26, 2018 Assessment & Plan (1) Open nasal fracture: 78-year-old male was admitted on 24 October 2018 following a fall and now an open nasal fracture. Open nasal fracture s/p fall: History of basal cell carcinoma with radiation and now medically treated with Erivedge (care at home in [place]). Fell face forward out of wheelchair prior to arrival. Now has exposed facial bones. - In ED, multiple CT and x-rays performed which showed fracture of the tip of the nasal bones as well as facial contusions. - In ED, was treated with normal saline, Ancef, and given a Tdap booster. Seen by Dr. Morales ([facility] [place]) and underwent suture repair of his cheek. - Was initially on ceftriaxone. Stopped on 10/26. Monitor for fever, local cellulitis, or other evidence of infection; none at this time. Placed formal consult to [facility] who recommended saline wet-to-dry dressings twice a day to manage the wound at the nose. - Plan for return home and further care there on Sunday. (2) Basal cell carcinoma (BCC): Undergoing therapy in [place]. - No inpatient needs (3) Anemia: Acute blood loss contributing. Hemoglobin on admission was 11.6. Has multiple abrasions s/p fall and has been on aspirin and Plavix. - Hgb was 9.9 on 10/25. - No excessive bleeding though per nursing they have changed his nasal dressing twice today for bloody drainage. - Monitor (4) Thyroid nodule: Thyroid nodule: 6 cm right lobe thyroid nodule seen on admit CT C-spine. Reportedly had a thyroidectomy around 1993 mass at that time. Is on levothyroxine. - Would benefit from further outpatient work-up. - Continue home levothyroxine. (5) Hypertension: Stable inpatient at 120/60. - Continue enalapril, metoprolol (6) Hyperlipidemia: - Continued statin (7) CAD (coronary artery disease): Reportedly three-vessel bypass around 1997. - Continue home aspirin and Plavix. (8) History of coronary artery bypass graft x 3: (9) History of CVA with residual deficit: Around 2006. This admit, CT head notes old left hemispheric infarct. At baseline, no movement of the right upper extremity and some weakness/spasticity of the right lower extremity. (10) Osteoporosis: - Osteoporosis: Seen on admit x-rays. (11) DVT prophylaxis: DVT prophy: SCDs for now given his multiple abrasions and contusions. Is already on aspirin and Plavix. Subjective No major complaints this morning. Feeling well. Review of Systems Review of Systems: All systems reviewed & are unremarkable except as noted in HPI & below Physical Exam Constitutional: WD/WN, vitals as above Eyes: EOM intact bilaterally; no conjunctival abnormality ENMT: external ear and nose normal, oropharynx normal Neck: trachea midline, no thyromegaly normal visual inspection Respiratory: normal respiratory effort, lungs clear to auscultation no respiratory distress Cardiovascular: RRR, no murmur, no edema Gastrointestinal (Abdomen): Inspection/Auscultation: abdomen normal to inspection; abdomen not distended Musculoskeletal: no cyanosis or clubbing, extremities motor strength 5/5 Skin: + wound (Across much of his face) Neurologic: moves all extremities and awake Psychiatric: Orientation: alert, oriented to person and cooperative Results & Data Vital Signs (Past 12 Hours) Vital Signs Temp Pulse Pulse Resp BP Pulse Ox 10/26/18 11:32 37.0 C 69 18 122/58 L 97 10/26/18 09:30 90 10/26/18 07:15 36.5 C 86 18 147/73 H 93 10/26/18 03:00 36.4 C L 86 18 124/66 96 PG Care Time/CCT Total # of Minutes Spent Total Time Spent with Patient: Total time spent is greater than 50% in coordination of care (as documented) at patient's floor/unit and/or counseling patient:
[2018-10-27] MEDS: LEVOTHYROXINE SODIUM 50 MCG TABLET PO SCH (06:08)
[2018-10-27] MEDS: ERIVEDGE 150 MG PO SCH (08:08)
[2018-10-27] MEDS: SIMVASTATIN 40 MG TAB PO SCH (08:09)
[2018-10-27] MEDS: ASPIRIN 81 MG ECTAB PO SCH (08:09)
[2018-10-27] MEDS: POTASSIUM CHLORIDE 10 MEQ TABCR PO SCH (08:09)
[2018-10-27] MEDS: METOPROLOL TARTRATE 25 MG TAB PO SCH (08:10)
[2018-10-27] MEDS: ENALAPRIL MALEATE 5 MG TAB PO SCH (08:10)
[2018-10-27] MEDS: CLOPIDOGREL BISULFATE 75 MG TAB PO SCH (08:10)
--- NOTE | 2018-10-27 15:46 | Discharge Summary ---
Date of Service October 27, 2018 Admission HPI Per Admitting Provider 78-year-old male is accompanied by his family after suffering a fall just prior to arrival. Patient is visiting from [place]. He was attending the [facility] when his family was wheeling him in his wheelchair through the parking lot. While wheeling him down that grassy hill the wheelchair struck a rock, immediately causing the patient to be projected forwards and took the brunt of the fall on his face. He also suffered multiple abrasions over his right upper extremity. Denied any loss of consciousness or present headache/vomiting. At the time of this H&P, patient denied any focal pains. However, his and his family's primary concern is related to his nose. Patient has been undergoing therapy for basal cell carcinoma on his nose. Has undergone multiple rounds of radiation but apparently is not a full surgical candidate. Has been started on medical management. As a result of this fall, he lost extra tissue over his previous radiation wound tissue leading to exposed bone and bleeding. No other immediate patient or family concerns. - Past medical history includes likely hypertension and hyperlipidemia, coronary disease, CVA around 2006, osteoporosis, likely dementia, basal cell carcinoma around the face. - Past surgical history includes CABG (likely three-vessel) around 1997, thyroidectomy around 1989. - Social history includes living in [place]. Visiting family locally. Principal Diagnosis Nasal fracture from fall Discharge Exam Constitutional WD/WN, vitals as above Eyes EOM intact bilaterally; no conjunctival abnormality ENMT external ear and nose normal, oropharynx normal Neck trachea midline, no thyromegaly normal visual inspection Respiratory normal respiratory effort, lungs clear to auscultation no respiratory distress Cardiovascular RRR, no murmur, no edema Gastrointestinal (Abdomen) Inspection/Auscultation: abdomen normal to inspection; abdomen not distended Musculoskeletal no cyanosis or clubbing, extremities motor strength 5/5 Skin + wound (Across much of his face) Neurologic moves all extremities and awake Psychiatric Orientation: alert, oriented to person and cooperative Discharge Data Allergies Allergy/AdvReac Type Severity Reaction Status Date / Time No Known Allergies Allergy Unverified 10/24/18 13:19 Consultations 10/24/18 18:30 ED Decision to Admit Stat 10/24/18 22:38 Consult Case Management - Discharge Planning Routine Consult Oromaxillofacial Surgery Routine Ordered Studies 10/24/18 13:13 CT cervical spine wo con Stat CT facial bones wo con Stat CT head/brain wo con Stat Hospital Course (1) Open nasal fracture: 78-year-old male was admitted on 24 October 2018 following a fall and now an open nasal fracture. Open nasal fracture s/p fall: History of basal cell carcinoma with radiation and now medically treated with Erivedge (care at home in [place]). Fell face forward out of wheelchair prior to arrival. Now has exposed facial bones. - In ED, multiple CT and x-rays performed which showed fracture of the tip of the nasal bones as well as facial contusions. - In ED, was treated with normal saline, Ancef, and given a Tdap booster. Seen by Dr. Morales ([facility] [place]) and underwent suture repair of his cheek. - Was initially on ceftriaxone. Stopped on 10/26. Monitor for fever, local cellulitis, or other evidence of infection; none at this time. Placed formal consult to [facility] [place] who recommended saline wet-to-dry dressings twice a day to manage the wound at the nose. - Plan for return home and further care there on Sunday. (2) Basal cell carcinoma (BCC): Undergoing therapy in [place]. - No inpatient needs (3) Anemia: Acute blood loss contributing. Hemoglobin on admission was 11.6. Has multiple abrasions s/p fall and has been on aspirin and Plavix. - Hgb was 9.9 on 10/25. - No excessive bleeding though per nursing they have changed his nasal dressing twice today for bloody drainage. - Monitor (4) Thyroid nodule: Thyroid nodule: 6 cm right lobe thyroid nodule seen on admit CT C-spine. Reportedly had a thyroidectomy around 1993 mass at that time. Is on levothyroxine. - Would benefit from further outpatient work-up. - Continue home levothyroxine. (5) Hypertension: Stable inpatient at 120/60. - Continue enalapril, metoprolol (6) Hyperlipidemia: - Continued statin (7) CAD (coronary artery disease): Reportedly three-vessel bypass around 1997. - Continue home aspirin and Plavix. (8) History of coronary artery bypass graft x 3: (9) History of CVA with residual deficit: Around 2006. This admit, CT head notes old left hemispheric infarct. At baseline, no movement of the right upper extremity and some weakness/spasticity of the right lower extremity. (10) Osteoporosis: - Osteoporosis: Seen on admit x-rays. (11) DVT prophylaxis: DVT prophy: SCDs for now given his multiple abrasions and contusions. Is already on aspirin and Plavix. Total Time Total Time Spent Total Time Spent (In Minutes): 45 Discharge Plan Discharge Items Patient Disposition: Home - Home Health Services Reason For Visit: OPEN NASAL FRACTURE S/P FALL Discharge Diagnosis: Nasal fracture after a fall Discharge Goals: Decrease discomfort and Prevent disease Activity: Resume your previous activity Non-emergency contact: Primary Care Provider and Specialist Call non-emergency contact if: your symptoms worsen and your temperature is above 101 Follow-up/Referrals: Ministerio Hernandez III, MD [Primary Care Provider] - Diet: Regular Addtl Provider Instructions: Mr. Bentley, You were admitted to the hospital after falling out of your wheelchair and hitting your face on the concrete. One of our facial surgeons stitched up your cheek. We gave you two days of antibiotics to help prevent infection, and we didn't see any signs of skin infection while you were here. Please follow up with your plastic straightening roll operator in [place] this week to see how this may affect your care for your skin cancer. If your face gets red, hot, warm, or has any pussy drainage, please see your doctor right away or go to the hospital. Prescriptions: Continued benazepril 5 mg Tablet 5 mg PO QAM RF: 0 potassium chloride 10 mEq Tablet Extended Release 10 meq PO QAM RF: 0 clopidogrel [Plavix] 75 mg Tablet 75 mg PO QAM RF: 0 aspirin 81 mg Tablet,Delayed Release (Dr/Ec) 81 mg PO QAM RF: 0 simvastatin 40 mg Tablet 40 mg PO QAM RF: 0 levothyroxine 50 mcg Tablet 50 mcg PO QAM RF: 0 metoprolol tartrate 25 mg Tablet 25 mg PO BID RF: 0 Erivedge 150 mg Capsule 150 mg PO QAM RF: 0 Stand-Alone Forms: [facility] Discharge Orders: Discharge Order (Routine); Ordered 10/27/18 Ordered By: Yeyo Alcantara Admission Data Admit Date/Time: 10/24/18 21:17 Attending Provider: Yeyo Alcantara Admit Provider: Jabari Sorenson Primary Care Provider: Ministerio Hernandez III Other Providers: Panfilo Morales ; Yeyo Alcantara Service: Telemetry Medical Other Interventions: Discharge Summary Assessment (RN) Last Done: 10/27/18 08:20 DC Date/Time DO NOT enter until pt leaves facility: 10/27/18 09:21
== END 2018-10-27 09:21 | disposition home health service (06) | DRG 581 ==
LOC: EDBD → ED 12:19 → 2W 21:17 → SUATTDRO 21:17 → 2W 21:46
DX: M81.0 Age-related osteoporosis without current pathological fracture; I69.320 Aphasia following cerebral infarction; F03.90 Unspecified dementia, unspecified severity, without behavioral disturbance, psychotic disturbance, mood disturbance, and anxiety; C44.81 Basal cell carcinoma of overlapping sites of skin; S40.021A Contusion of right upper arm, initial encounter; S00.80XA Unspecified superficial injury of other part of head, initial encounter; S01.81XA Laceration without foreign body of other part of head, initial encounter; D64.9 Anemia, unspecified; W05.0XXA Fall from non-moving wheelchair, initial encounter; Y92.009 Unspecified place in unspecified non-institutional (private) residence as the place of occurrence of the external cause; S09.90XA Unspecified injury of head, initial encounter; S02.2XXA Fracture of nasal bones, initial encounter for closed fracture; Z92.3 Personal history of irradiation